=== PATIENT | female | born 1985 | race Caucasian/White ===

== ENCOUNTER → 2019-12-09 16:10 | Outpatient (BNVA) | payer SELFPAY | PROVIDERS: PCP Nurse Practitioner Family; Visit Provider Nurse Practitioner Family | DX: R05 Cough (principal); R52 Pain, unspecified; J02.9 Acute pharyngitis, unspecified | CPT/HCPCS: 87071; 87400; 87635; 87880 ==

== ENCOUNTER → 2020-02-16 13:00 | Outpatient (BNVA) | payer MEDICAID, SELFPAY | PROVIDERS: Visit Provider Social Worker Clinical | DX: F43.12 Post-traumatic stress disorder, chronic (principal) | CPT/HCPCS: 90834 ==

== ENCOUNTER → 2020-04-10 08:40 | Outpatient (BNVA) | payer MEDICAID, SELFPAY | PROVIDERS: Visit Provider Nurse Practitioner Psychiatric/Mental Health | DX: F43.12 Post-traumatic stress disorder, chronic (principal); F41.1 Generalized anxiety disorder; F39 Unspecified mood [affective] disorder; Z87.898 Personal history of other specified conditions | CPT/HCPCS: 99212 ==

== ENCOUNTER → 2020-04-11 08:38 | Outpatient (BNVA) | payer MEDICAID, SELFPAY | PROVIDERS: Visit Provider Social Worker Clinical | DX: F43.12 Post-traumatic stress disorder, chronic (principal) | CPT/HCPCS: 90832 ==

== ENCOUNTER → 2020-04-25 08:04 | Outpatient (BNVA) | payer MEDICAID, SELFPAY | PROVIDERS: Visit Provider Social Worker Clinical | DX: F43.12 Post-traumatic stress disorder, chronic (principal) | CPT/HCPCS: 90834 ==

== ENCOUNTER → 2020-05-09 08:16 | Outpatient (BNVA) | payer MEDICAID, SELFPAY | PROVIDERS: Visit Provider Social Worker Clinical | DX: F43.12 Post-traumatic stress disorder, chronic (principal); F41.1 Generalized anxiety disorder | CPT/HCPCS: 90832 ==

== ENCOUNTER → 2020-05-16 09:24 | Outpatient (BNVA) | payer MEDICAID, SELFPAY | PROVIDERS: Visit Provider Nurse Practitioner Psychiatric/Mental Health | DX: F43.12 Post-traumatic stress disorder, chronic (principal); F41.1 Generalized anxiety disorder; F39 Unspecified mood [affective] disorder; Z87.898 Personal history of other specified conditions | CPT/HCPCS: 99212 ==

== ENCOUNTER → 2020-05-24 08:32 | Outpatient (BNVA) | payer MEDICAID, SELFPAY | PROVIDERS: Visit Provider Social Worker Clinical | DX: F43.12 Post-traumatic stress disorder, chronic (principal) | CPT/HCPCS: 90832 ==

== ENCOUNTER → 2020-07-10 09:07 | Outpatient (BNVA) | payer MEDICAID, SELFPAY | PROVIDERS: Visit Provider Nurse Practitioner Psychiatric/Mental Health | DX: F43.12 Post-traumatic stress disorder, chronic (principal); F41.1 Generalized anxiety disorder; F39 Unspecified mood [affective] disorder; Z87.898 Personal history of other specified conditions | CPT/HCPCS: 99213 ==

== ENCOUNTER → 2020-10-02 08:39 | Outpatient (BNVA) | payer MEDICAID, SELFPAY | PROVIDERS: Visit Provider Nurse Practitioner Psychiatric/Mental Health | DX: F43.12 Post-traumatic stress disorder, chronic (principal); F41.1 Generalized anxiety disorder; F39 Unspecified mood [affective] disorder; Z87.898 Personal history of other specified conditions | CPT/HCPCS: 99214 ==

== ENCOUNTER → 2020-11-07 08:55 | Outpatient (BNVA) | payer MEDICAID, SELFPAY | PROVIDERS: Visit Provider Nurse Practitioner Psychiatric/Mental Health | DX: F43.12 Post-traumatic stress disorder, chronic (principal); F41.1 Generalized anxiety disorder; F39 Unspecified mood [affective] disorder | CPT/HCPCS: 99213 ==

== ENCOUNTER → 2021-01-04 13:04 | Outpatient (BNVA) | payer MEDICAID, SELFPAY | PROVIDERS: Visit Provider Social Worker | DX: F43.12 Post-traumatic stress disorder, chronic (principal) | CPT/HCPCS: 90834 ==

== ENCOUNTER → 2021-01-15 07:55 | Outpatient (BNVA) | payer MEDICAID, SELFPAY | PROVIDERS: Visit Provider Nurse Practitioner Psychiatric/Mental Health | DX: F43.12 Post-traumatic stress disorder, chronic (principal); F41.1 Generalized anxiety disorder; F39 Unspecified mood [affective] disorder; Z79.899 Other long term (current) drug therapy | CPT/HCPCS: 99213 ==

== ENCOUNTER → 2021-01-17 11:25 | Outpatient (BNVA) | payer MEDICAID, SELFPAY | PROVIDERS: PCP Nurse Practitioner Psychiatric/Mental Health; Visit Provider Nurse Practitioner Psychiatric/Mental Health | DX: Z79.899 Other long term (current) drug therapy (principal) | CPT/HCPCS: 80061; 83036 ==

== ENCOUNTER → 2021-01-18 15:04 | Outpatient (BNVA) | payer MEDICAID, SELFPAY | PROVIDERS: Visit Provider Social Worker | DX: F43.12 Post-traumatic stress disorder, chronic (principal) | CPT/HCPCS: 90834 ==

== ENCOUNTER → 2021-02-15 14:56 | Outpatient (BNVA) | payer MEDICAID, SELFPAY | PROVIDERS: Visit Provider Social Worker | DX: F43.12 Post-traumatic stress disorder, chronic (principal) | CPT/HCPCS: 90834 ==

== ENCOUNTER → 2021-03-15 13:47 | Outpatient (BNVA) | payer MEDICAID, SELFPAY | PROVIDERS: Visit Provider Social Worker | DX: F43.12 Post-traumatic stress disorder, chronic (principal) | CPT/HCPCS: 90834 ==

== ENCOUNTER → 2021-03-16 15:56 | Outpatient (BNVA) | payer MEDICAID, SELFPAY | PROVIDERS: Visit Provider Internal Medicine | DX: E07.9 Disorder of thyroid, unspecified (principal) | CPT/HCPCS: 84439; 84443; 86376; 86800 ==

== ENCOUNTER → 2021-03-19 16:26 | Outpatient (BNVA) | payer MEDICAID, SELFPAY | PROVIDERS: Visit Provider Internal Medicine | DX: E07.9 Disorder of thyroid, unspecified (principal) | CPT/HCPCS: 82530; 82570 ==

== ENCOUNTER → 2021-03-28 13:52 | Outpatient (BNVA) | payer MEDICAID, SELFPAY | PROVIDERS: Visit Provider Social Worker | DX: F43.12 Post-traumatic stress disorder, chronic (principal) | CPT/HCPCS: 90834 ==

== ENCOUNTER → 2021-04-10 14:47 | Outpatient (BNVA) | payer MEDICAID, SELFPAY | PROVIDERS: Visit Provider Social Worker | DX: F43.12 Post-traumatic stress disorder, chronic (principal) | CPT/HCPCS: 90834 ==

== ENCOUNTER → 2021-04-12 07:54 | Outpatient (BNVA) | payer MEDICAID, SELFPAY | PROVIDERS: Visit Provider Nurse Practitioner Psychiatric/Mental Health | DX: F43.12 Post-traumatic stress disorder, chronic (principal); F41.1 Generalized anxiety disorder; F39 Unspecified mood [affective] disorder; Z79.899 Other long term (current) drug therapy | CPT/HCPCS: 99214 ==

== ENCOUNTER → 2021-05-01 14:02 | Outpatient (BNVA) | payer MEDICAID, SELFPAY | PROVIDERS: Visit Provider Social Worker | DX: F43.12 Post-traumatic stress disorder, chronic (principal) | CPT/HCPCS: 90834 ==

== ENCOUNTER → 2021-05-09 15:14 | Outpatient (BNVA) | payer MEDICAID, SELFPAY | PROVIDERS: Visit Provider Psychiatry & Neurology Psychiatry | DX: F43.12 Post-traumatic stress disorder, chronic (principal); F41.1 Generalized anxiety disorder; F33.2 Major depressive disorder, recurrent severe without psychotic features | CPT/HCPCS: 99214 ==

== ENCOUNTER → 2021-05-24 07:48 | Outpatient (BNVA) | payer MEDICAID, SELFPAY | PROVIDERS: Visit Provider Social Worker | DX: F43.12 Post-traumatic stress disorder, chronic (principal) | CPT/HCPCS: 90834 ==

== ENCOUNTER → 2021-06-07 07:17 | Outpatient (BNVA) | payer MEDICAID, SELFPAY | PROVIDERS: Visit Provider Social Worker | DX: F43.12 Post-traumatic stress disorder, chronic (principal) | CPT/HCPCS: 90834 ==

== ENCOUNTER → 2021-06-19 14:55 | Outpatient (BNVA) | payer MEDICAID, SELFPAY | PROVIDERS: Visit Provider Social Worker | DX: F43.12 Post-traumatic stress disorder, chronic (principal); F33.2 Major depressive disorder, recurrent severe without psychotic features; F41.1 Generalized anxiety disorder; F31.61 Bipolar disorder, current episode mixed, mild | CPT/HCPCS: 90834 ==

== ENCOUNTER → 2021-07-02 14:50 | Outpatient (BNVA) | payer MEDICAID, SELFPAY | PROVIDERS: Visit Provider Social Worker | DX: F43.12 Post-traumatic stress disorder, chronic (principal); F33.2 Major depressive disorder, recurrent severe without psychotic features; F41.1 Generalized anxiety disorder; F31.61 Bipolar disorder, current episode mixed, mild | CPT/HCPCS: 90834 ==

== ENCOUNTER → 2021-07-11 14:49 | Outpatient (BNVA) | payer MEDICAID, SELFPAY | PROVIDERS: Visit Provider Internal Medicine | DX: R63.5 Abnormal weight gain (principal); R53.83 Other fatigue; E07.9 Disorder of thyroid, unspecified; Z68.42 Body mass index [BMI] 45.0-49.9, adult | CPT/HCPCS: 99214 ==

== ENCOUNTER 2021-07-11 15:39 | Outpatient (CLI) | payer MEDICAID, SELFPAY ==
[2021-07-11 17:23] LABS: Thyroid Stimulating Hormone 1.04 uIU/mL (0.27-4.20)
[2021-07-11 21:17] LABS: Free T4 Free Thyroxine 1.15 ng/dL (0.82-1.77)
[2021-07-13 00:52] LABS: T3 Total 96 ng/dL (76-181)
== END 2021-07-11 15:40 | disposition home or self-care (01) ==
LOC: LAB 15:43
PROVIDERS: Visit Provider Internal Medicine
DX: R53.83 Other fatigue (principal); R63.5 Abnormal weight gain
CPT/HCPCS: 36415; 84439; 84443; 84480

== ENCOUNTER → 2021-07-24 14:33 | Outpatient (BNVA) | payer MEDICAID, SELFPAY | PROVIDERS: Visit Provider Psychiatry & Neurology Psychiatry | DX: F33.2 Major depressive disorder, recurrent severe without psychotic features (principal); F43.12 Post-traumatic stress disorder, chronic; F41.1 Generalized anxiety disorder | CPT/HCPCS: 99214 ==

== ENCOUNTER → 2021-08-09 15:58 | Outpatient (BNVA) | payer MEDICAID, SELFPAY | PROVIDERS: Visit Provider Social Worker | DX: F43.12 Post-traumatic stress disorder, chronic (principal); F33.2 Major depressive disorder, recurrent severe without psychotic features; F41.1 Generalized anxiety disorder; F31.61 Bipolar disorder, current episode mixed, mild | CPT/HCPCS: 90834 ==

== ENCOUNTER → 2021-09-10 14:00 | Outpatient (BNVA) | payer MEDICAID, SELFPAY | PROVIDERS: Visit Provider Social Worker | DX: F43.12 Post-traumatic stress disorder, chronic (principal); F33.2 Major depressive disorder, recurrent severe without psychotic features; F41.1 Generalized anxiety disorder; F31.61 Bipolar disorder, current episode mixed, mild | CPT/HCPCS: 90834 ==

== ENCOUNTER → 2021-09-13 13:34 | Outpatient (BNVA) | payer MEDICAID, SELFPAY | PROVIDERS: Visit Provider Surgery | DX: F33.2 Major depressive disorder, recurrent severe without psychotic features (principal) ==

== ENCOUNTER → 2021-09-18 07:33 | Outpatient (BNVA) | payer MEDICAID, SELFPAY | PROVIDERS: Visit Provider Psychiatry & Neurology Psychiatry | DX: F33.2 Major depressive disorder, recurrent severe without psychotic features (principal); F43.12 Post-traumatic stress disorder, chronic; F41.1 Generalized anxiety disorder | CPT/HCPCS: 99214 ==

== ENCOUNTER → 2021-10-08 07:21 | Outpatient (BNVA) | payer MEDICAID, SELFPAY | PROVIDERS: Visit Provider Social Worker | DX: F43.12 Post-traumatic stress disorder, chronic (principal); F31.61 Bipolar disorder, current episode mixed, mild; F33.2 Major depressive disorder, recurrent severe without psychotic features; F41.1 Generalized anxiety disorder | CPT/HCPCS: 90834 ==

== ENCOUNTER → 2021-11-06 14:51 | Outpatient (BNVA) | payer MEDICAID, SELFPAY | PROVIDERS: Visit Provider Nurse Practitioner Family | DX: E11.9 Type 2 diabetes mellitus without complications (principal) | CPT/HCPCS: 83036 ==

== ENCOUNTER → 2021-11-14 13:59 | Outpatient (BNVA) | payer MEDICAID, SELFPAY | PROVIDERS: Visit Provider Surgery | DX: F43.12 Post-traumatic stress disorder, chronic (principal); F33.2 Major depressive disorder, recurrent severe without psychotic features; F41.1 Generalized anxiety disorder; F31.61 Bipolar disorder, current episode mixed, mild; R22.2 Localized swelling, mass and lump, trunk | CPT/HCPCS: 90837; 90834; 99213 ==

== ENCOUNTER → 2021-11-20 14:47 | Outpatient (BNVA) | payer MEDICAID, SELFPAY | PROVIDERS: Visit Provider Psychiatry & Neurology Psychiatry | DX: F33.2 Major depressive disorder, recurrent severe without psychotic features (principal); F43.12 Post-traumatic stress disorder, chronic; F41.1 Generalized anxiety disorder | CPT/HCPCS: 99214 ==

== ENCOUNTER → 2021-11-27 13:09 | Outpatient (BNVA) | payer MEDICAID, SELFPAY | PROVIDERS: Visit Provider Social Worker | DX: F43.12 Post-traumatic stress disorder, chronic (principal); F33.2 Major depressive disorder, recurrent severe without psychotic features; F41.1 Generalized anxiety disorder; F31.61 Bipolar disorder, current episode mixed, mild | CPT/HCPCS: 90834 ==

== ENCOUNTER → 2021-12-11 09:46 | Outpatient (BNVA) | payer MEDICAID, SELFPAY | PROVIDERS: Visit Provider Nurse Practitioner Family | DX: E11.9 Type 2 diabetes mellitus without complications (principal) | CPT/HCPCS: 80053; 80061; 84443; 85025 ==

== ENCOUNTER → 2021-12-12 10:14 | Outpatient (BNVA) | payer MEDICAID, SELFPAY | PROVIDERS: Visit Provider Anesthesiology Pain Medicine | DX: G89.29 Other chronic pain (principal); M25.562 Pain in left knee; Z91.81 History of falling | CPT/HCPCS: 73562; 99203 ==

== ENCOUNTER 2021-12-31 13:00 | Outpatient (CLI) | payer MEDICAID, SELFPAY | END 2022-01-03 12:05 | disposition home or self-care (01) | LOC: SLEEP 01-10 08:19 | PROVIDERS: Visit Provider Internal Medicine | DX: R53.83 Other fatigue (principal); R63.5 Abnormal weight gain; G47.33 Obstructive sleep apnea (adult) (pediatric) | CPT/HCPCS: G0399 ==

== ENCOUNTER → 2022-01-09 14:11 | Outpatient (BNVA) | payer MEDICAID, SELFPAY | PROVIDERS: PCP Nurse Practitioner Family; Visit Provider Internal Medicine | DX: E11.9 Type 2 diabetes mellitus without complications (principal); R63.5 Abnormal weight gain; R53.83 Other fatigue; E07.9 Disorder of thyroid, unspecified; L65.9 Nonscarring hair loss, unspecified; G47.33 Obstructive sleep apnea (adult) (pediatric); Z68.41 Body mass index [BMI] 40.0-44.9, adult; Z79.84 Long term (current) use of oral hypoglycemic drugs | CPT/HCPCS: 99214 ==

== ENCOUNTER → 2022-01-14 09:47 | Outpatient (BNVA) | payer MEDICAID, SELFPAY | PROVIDERS: PCP Nurse Practitioner Family; Visit Provider Anesthesiology Pain Medicine | DX: M25.562 Pain in left knee (principal); G89.29 Other chronic pain | CPT/HCPCS: 99214 ==

== ENCOUNTER → 2022-01-31 10:52 | Outpatient (BNVA) | payer MEDICAID, SELFPAY | PROVIDERS: PCP Nurse Practitioner Family; Referring Provider Internal Medicine; Visit Provider Internal Medicine Pulmonary Disease | DX: G47.33 Obstructive sleep apnea (adult) (pediatric) (principal); J45.909 Unspecified asthma, uncomplicated; Z68.41 Body mass index [BMI] 40.0-44.9, adult; T78.40XA Allergy, unspecified, initial encounter; E11.9 Type 2 diabetes mellitus without complications; Z79.84 Long term (current) use of oral hypoglycemic drugs | CPT/HCPCS: 82785; 85025; 86003; 99204 ==

== ENCOUNTER 2022-02-15 13:36 | Outpatient (CLI) | payer MEDICAID, SELFPAY ==
--- NOTE | 2022-02-15 13:45 | MR_ITS ---
WS: [id number] MRI LEFT KNEE NONCONTRAST TECHNIQUE: Axial PD, coronal PD fat sat, coronal PD, sagittal PD, and sagittal PD fat-sat images obta ined. CLINICAL INFORMATION: M25.562 - Pain in left knee COMPARISON: None. FINDINGS: Distal quadriceps and patella tendons are intact. Hypertrophic patella. Mucoid degeneration ACL. Evid ence of prior suspected ACL tear with increased T2 signal abnormality in the mid and distal ACL exten ding to the tibial insertion. Associated T2 hyperintense intra-articular ganglion cyst along the prox imal dorsal ACL fibers measuring 7.6 x 7.0 mm. PCL is intact. Moderate chondromalacia patella. Slight lateral subluxation of the patella. Lateral patellar retinacu lum is not visualized likely chronically torn. Normal medial patellar retinaculum. Normal medial neal ateral ligament. Normal lateral collateral ligament. Intrasubstance tear involving the popliteus orig in with fluid deep to the ligament. Mild chronic thinning of the medial and lateral meniscus. No acut e appearing meniscal tears. IMPRESSION: 1. Intrasubstance tear involving the mid and distal ACL extending to the tibial insertion with mucoi d degeneration. 2. 7.6 x 7.0 mm intra-articular ganglion cyst along the dorsal proximal ACL fibers. 3. Moderate chondromalacia patella. Lateral subluxation of the patella with hypertrophic spurring la terally. Lateral patellar retinaculum is not visualized likely chronically torn. Normal medial patell ar retinaculum. 4. Fluid deep to the popliteus with a small intrasubstance tear of the popliteus origin. Recommend c orrelation with history of posterior lateral corner injury. 5. Medial and lateral collateral ligaments appear intact. 6. No other acute findings. Outbridge grading:
== END 2022-02-15 13:37 | disposition home or self-care (01) ==
PROVIDERS: PCP Nurse Practitioner Family; Visit Provider Anesthesiology Pain Medicine
DX: S83.512A Sprain of anterior cruciate ligament of left knee, initial encounter (principal); M22.42 Chondromalacia patellae, left knee; X58.XXXA Exposure to other specified factors, initial encounter
CPT/HCPCS: 73721; 87493

== ENCOUNTER → 2022-02-25 15:06 | Outpatient (BNVA) | payer MEDICAID, SELFPAY | PROVIDERS: PCP Nurse Practitioner Family; Referring Provider Anesthesiology Pain Medicine; Visit Provider Specialist | DX: G89.29 Other chronic pain; S83.512A Sprain of anterior cruciate ligament of left knee, initial encounter; E66.01 Morbid (severe) obesity due to excess calories; Z68.41 Body mass index [BMI] 40.0-44.9, adult; V00.211A Fall from ice-skates, initial encounter | CPT/HCPCS: 73560; 73565; 99204 ==

== ENCOUNTER 2022-04-30 09:29 | Outpatient (CLI) | payer MEDICAID, SELFPAY ==
--- NOTE | 2022-04-30 09:45 | IR_ITS ---
WS: [id number] LEFT KNEE ARTHROGRAM (FLUOROSCOPY) LEFT knee arthrogram was performed in fluoroscopy prior to MRI evaluation. Fluoroscopy time: 0.4 minutes, 2 spot radiographs. HISTORY: pain COMPARISON: Prior knee MRI 04/30/2022. Procedure, risks and complications were explained to the patient. Complications include but not limit ed to bleeding, infection and contrast reaction. Current medications are reviewed. Skin is cleansed with ChloraPrep. Skin is anesthetized with 1% buffered lidocaine. 22-gauge needle is inserted into the medial patellofemoral joint space. Approximately 35 cc of gadolinium mixture injec lore without complication. Patient will proceed to MRI evaluation immediately. No complications were encountered. Patient is instructed to watch for post procedure infection or ble eding. Patient is also instructed to contact the radiology department with any concerns. IR/[place] [id number] IMPRESSION: Uncomplicated LEFT knee joint joint injection prior to MR arthrogram. Small amount contrast extends along the lateral knee compartment. This is exter nal to the joint.
[2022-04-30] MEDS: gadobenate dimeglumine 5 mL vial XX (10:32)
[2022-04-30] MEDS: iohexol 240 mg/mL 50 mL Btl INTRA-ARTI (10:33)
--- NOTE | 2022-04-30 11:45 | MR_ITS ---
WS: [id number] MRI LEFT KNEE post arthrogram. COMPARISON: Prior MRI knee 02/15/2022 Multiplanar, multisequence imaging is performed with articular contrast. History: Continued lateral knee pain. Normal medial and lateral cartilage. There is good injection of contrast. ACL and PCL appear intact. There is mild lateral subluxation of the patella. The lateral patellar retinaculum is very thin calib er. There is contrast extending from the posterior lateral knee joint inferiorly along the lateral tibial plateau towards the popliteus muscle. Although subtle there does appear to be a defect and probable tear involving the inferior popliteal meniscal fascicle. Contrast extends from the joint space throug h the meniscal fascicle tear. This contrast extends into the popliteus muscle and tendon. This could be the source of pain over the lateral knee. There is a loose body measuring 7 mm along the anterior knee joint. This is just anterior to the dist al ACL and was also present on the prior MRI. No donor site is evident. MR/MR knee LT w con [id number] IMPRESSION: 1. Highly suspicious for tear involving the inferior popliteal meniscal fascic le. 2. 7 mm loose body along the anterior knee joint. No donor site is evident.
== END 2022-04-30 09:30 | disposition home or self-care (01) ==
LOC: RAD 09:30
PROVIDERS: PCP Nurse Practitioner Family; Visit Provider Specialist
DX: M25.562 Pain in left knee (principal); M17.12 Unilateral primary osteoarthritis, left knee
CPT/HCPCS: 27369; 73722; 77002; 83036; 85025; A9577; Q9966

== ENCOUNTER → 2022-05-13 13:05 | Outpatient (BNVA) | payer MEDICAID, SELFPAY | PROVIDERS: PCP Nurse Practitioner Family; Visit Provider Nurse Practitioner Family | DX: E11.9 Type 2 diabetes mellitus without complications (principal); R53.83 Other fatigue; R63.5 Abnormal weight gain | CPT/HCPCS: 80061; 83036; 84439; 84443 ==

== ENCOUNTER → 2022-05-21 14:28 | Outpatient (BNVA) | payer MEDICAID, SELFPAY | PROVIDERS: PCP Nurse Practitioner Family; Visit Provider Internal Medicine | DX: E11.9 Type 2 diabetes mellitus without complications (principal); E78.2 Mixed hyperlipidemia; E07.9 Disorder of thyroid, unspecified; R53.83 Other fatigue; R63.5 Abnormal weight gain; Z68.41 Body mass index [BMI] 40.0-44.9, adult | CPT/HCPCS: 99214 ==

== ENCOUNTER → 2022-06-20 09:20 | Outpatient (BNVA) | payer MEDICAID, SELFPAY | PROVIDERS: PCP Nurse Practitioner Family; Visit Provider Anesthesiology Pain Medicine | DX: G89.29 Other chronic pain (principal); M25.562 Pain in left knee; M54.16 Radiculopathy, lumbar region | CPT/HCPCS: 99214 ==

== ENCOUNTER 2022-06-28 12:49 | Emergency (ER) | payer MEDICAID, SELFPAY ==
[2022-06-28 12:53] VITALS: BP 132/85; PULSE 72; RESP 16; TEMP 36.4; O2SAT 97
[2022-06-28 14:47] LABS: Basophils # 0.1 10^3/uL (0.0-0.1); Basophils % 0.7 %; Eosinophils # 0.1 10^3/uL (0.0-0.8); Eosinophils % 0.7 %; Hematocrit 51.3 % (37.0-47.0); Hemoglobin 16.5 g/dL (11.5-15.3); Lymphocytes # 2.8 10^3/uL (0.8-4.8); Lymphocytes % 28.6 %; Mean Corpuscular HGB Conc 32.2 g/dL (30.0-36.0); Mean Corpuscular Hemoglobin 28.8 pg (28.0-34.0); Mean Corpuscular Volume 89.5 fl (81-99); Mean Platelet Volume 9.5 fL (7.4-10.4); Monocytes # 0.8 10^3/uL (0.2-0.9); Monocytes % 8.4 %; Neutrophils # 5.94 10^3/uL (1.8-7.7); Neutrophils % 61.4 %; Nucleated Red Blood Cells % 0 %; Platelet Count 315 10^3/cmm (130-400); Red Blood Count 5.73 10^6/uL (4.1-5.3); Red Cell Distribution Width 13.2 % (12.1-15.1); White Blood Count 9.7 10^3/uL (4.0-10.0)
[2022-06-28 15:03] LABS: HCG, Serum Qual Negative (Negative)
[2022-06-28 15:04] LABS: Alanine Aminotransferase 35 U/L (0-33); Albumin Level 4.6 g/dL (3.5-5.2); Alkaline Phosphatase 77 U/L (35-105); Anion Gap 16.1 (5-19); Aspartate Amino Transferase 19 U/L (0-32); Blood Urea Nitrogen 18 mg/dL (6-20); Calcium 9.7 mg/dL (8.5-10.5); Carbon Dioxide 23 mmol/L (22-29); Chloride 103 mmol/L (98-107); Globulin 2.8 g/dL (1.3-4.6); Glomerular Filtration Rate 62.1 mL/min (90-130); Glucose 120 mg/dL (65-115); Osmolality Calculated 289 mOsm/kg (285-295); Potassium 4.1 mmol/L (3.5-5.1); Sodium 138 mmol/L (136-145); Total Bilirubin 0.3 mg/dL (0.15-1.2); Total Protein 7.4 g/dL (6.6-8.7)
--- NOTE | 2022-06-28 16:59 | CTR_ITS ---
PROCEDURE INFORMATION: Exam: CT Abdomen And Pelvis Without Contrast Exam date and time: 06/28/2022 5:10 PM Age: 36 years old Clinical indication: Abdominal pain; Flank; Left; Prior surgery; Surgery date: 6+ months; Surgery type: Hyster, gb; Additional info: Left renal colic TECHNIQUE: Imaging protocol: Computed tomography of the abdomen and pelvis without contrast. Radiation optimization: All CT scans at this facility use at least one of these dose optimization techniques: automated exposure control; mA and/or kV adjustment per patient size (includes targeted exams where dose is matched to clinical indication); or iterative reconstruction. Other protocol: This patient has received [address] and 0 known cardiac nuclear medicine studies in the 12 months prior to the current study. COMPARISON: No relevant prior studies available. RADIATION DOSE METRICS: Total DLP (mGy-cm): 1181.23 FINDINGS: Lungs: Minimal discoid atelectasis right lower lobe. Liver: Diffuse fatty infiltration of the liver. The liver is enlarged measuring 19.5 cm. Gallbladder and bile ducts: Status post cholecystectomy. Pancreas: Normal. No ductal dilation. Spleen: Normal. No splenomegaly. Adrenal glands: Normal. No mass. Kidneys and ureters: 3 mm nonobstructing stone is present in the lower pole of the left kidney. No hydronephrosis. Stomach and bowel: Unremarkable. No obstruction. No mucosal thickening. Appendix: No evidence of appendicitis. Intraperitoneal space: Unremarkable. No free air. No significant fluid collection. Vasculature: Unremarkable. No abdominal aortic aneurysm. Lymph nodes: Unremarkable. No enlarged lymph nodes. Urinary bladder: The bladder is decompressed. Reproductive: Hysterectomy. Bones/joints: Unremarkable. No acute fracture. Soft tissues: Unremarkable. CT/CT kidney stone [id number] IMPRESSION: 1. 3 mm nonobstructing left-sided nephrolith. No obstructing stone identified. 2. Hepatomegaly with fatty infiltration of the liver. 3. Status post cholecystectomy.
--- NOTE | 2022-06-28 17:02 | ED_ITS ---
HPI - Abdominal Pain General: Chief Complaint: Abdominal Pain Stated Complaint: kidney stone Time Seen by Provider: 06/28/22 16:42 History of Present Illness: 36-year-old female in with concerns of diffuse abdominal pain left greater than right. She previously had an evaluation at [facility] and was told that she had some kidney stones and has been referred to urology but she has not seen them yet. She reports today the pain got significantly worse she describes it as a colicky type of pain on her left side but to a lesser degree on her right side. She does have some radiation to the flank bilaterally. The patient notes no palliative or provocative factors she went to her primary care nurse practitioner who ran a urinalysis that was fairly normal and then because of her complaints of moderate pain she was referred to the emergency department for further evaluation she denies any dysuria or hematuria. She has not run any fever nor has she had any chills. She denies any skin rash or lesions. Patient has not had any vaginal bleeding and denies . Patient has not started on any new or different medication she has a variety of different medication allergies listed. Associated Symptoms: Reports bloating and nausea; Denies change in bowel habits, coffee ground emesis, constipation, excessive flatus, hematochezia, hematemesis, melena and vomiting Review of Systems General: Reports: 10 or more systems reviewed and unremarkable except in HPI and below GI: Reports: abdominal pain, nausea and bloating; Denies: vomiting, hematemesis, coffee ground emesis, dysphagia, constipation, excessive flatus, change in bowel habits, hematochezia or melena Skin/Breast: Denies: rash, pruritus or erythema PFS ED PFSH: Medical History Chronic ear infection Chronic pain of left knee Diabetes 1.5, managed as type 2 Insomnia Insomnia Knee arthropathy Problems related to lack of adequate sleep Psychiatric care Tachycardia Surgical History History of arthroscopic knee surgery Left 2x History of cholecystectomy Hx of hysterectomy Family History Father Cancer Depression Mother Diabetes Cancer Depression Anxiety Social History (Reviewed 06/28/22 @ 19:46 by PING Crockett Smoking and tobacco status: never smoked Second hand smoke exposure: No Smoking risk assessment/counseling performed?: Yes Alcohol intake: former Desire information about alcohol rehabilitation?: No Desire information about substance/drug rehabilitation?: No Adopted: No Caregiver/support person: No Lives independently: Yes Household members: none Housing: House Marital status: Single Number of children: 0 Highest education level completed: Master's Degree service: No Current occupational status: disabled History of recent travel: Yes Details: [place] Out of state: Yes Current gender identity: Female Physical Exam Const: OTHER: General sign of an obese female in no apparent distress. She does not appear toxic or significantly ill. Chest: OTHER: Chest nontender Resp: OTHER: Respiratory rate is normal and lungs are clear to auscultation Cardio: OTHER: Regular rate and rhythm GI: OTHER: Soft and normal active bowel sounds she is mildly tender in the pelvis and to the left flank. No rebound or guarding. Neuro: OTHER: Nonfocal Psych: OTHER: Anxious Course Vital Signs: Vital signs: Vital Signs Temperature 97.6 F 06/28/22 12:53 Pulse Rate 71 06/28/22 19:40 Respiratory Rate 16 06/28/22 19:40 Blood Pressure 123/77 06/28/22 19:40 Pulse Oximetry 96 06/28/22 19:40 Oxygen Delivery Me thod 06/28/22 19:40 MDM - Abdominal Pain Medical Decision Making I discussed the differential diagnosis she reports recent history of kidney stone it may be reasonable to go ahead and repeat her CT scan to rule out colitis and kidney stone another more serious intra-abdominal catastrophes or serious diagnoses. The patient looks relatively comfortable Bessie give her some Toradol we will check some routine labs and urinalysis and then I will recheck her. The patient reports feeling significantly better after Toradol. The work-up here was nondiagnostic there were not any stones in the ureter. Patient will be discharged home she does have elevated hemoglobin and hematocrit that I talked with her about. I think that is unlikely to play any role in her symptoms. I have recommended that she follow-up with primary care and we reviewed return precautions. Will treat symptomatically. Differential Diagnosis Likely abdominal pain, acute appendicitis, calculus of kidney, constipation, diverticulitis, gastroenteritis, pancreatitis and small bowel obstruction Lab Data 06/28/22 14:35 06/28/22 14:35 Labs/Radiology: Radiology Impressions Abdomen/Pelvis CT 06/28/22 16:59 IMPRESSION: 1. 3 mm nonobstructing left-sided nephrolith. No obstructing stone identified. 2. Hepatomegaly with fatty infiltration of the liver. 3. Status post cholecystectomy. Laboratory Results WBC 9.7 10^3/uL (4.0-10.0) 06/28/22 14:35 RBC 5.73 10^6/uL (4.1-5.3) H 06/28/22 14:35 Hgb 16.5 g/dL (11.5-15.3) H 06/28/22 14:35 Hct 51.3 % (37.0-47.0) H 06/28/22 14:35 MCV 89.5 fl (81-99) 06/28/22 14:35 MCH 28.8 pg (28.0-34.0) 06/28/22 14:35 MCHC 32.2 g/dL (30.0-36.0) 06/28/22 14:35 RDW 13.2 % (12.1-15.1) 06/28/22 14:35 Plt Count 315 10^3/cmm (130-400) 06/28/22 14:35 MPV 9.5 fL (7.4-10.4) 06/28/22 14:35 Neut % (Auto) 61.4 % 06/28/22 14:35 Lymph % (Auto) 28.6 % 06/28/22 14:35 [place] % (Auto) 8.4 % 06/28/22 14:35 Eos % (Auto) 0.7 % 06/28/22 14:35 Baso % (Auto) 0.7 % 06/28/22 14:35 Neut # (Auto) 5.94 10^3/uL (1.8-7.7) 06/28/22 14:35 Lymph # (Auto) 2.8 10^3/uL (0.8-4.8) 06/28/22 14:35 [place] # (Auto) 0.8 10^3/uL (0.2-0.9) 06/28/22 14:35 Eos # (Auto) 0.1 10^3/uL (0.0-0.8) 06/28/22 14:35 Baso # (Auto) 0.1 10^3/uL (0.0-0.1) 06/28/22 14:35 Nucleated RBC % (auto) 0 % 06/28/22 14:35 Nucleated RBCs # 0.0 /100WBC 06/28/22 14:35 Sodium 138 mmol/L (136-145) 06/28/22 14:35 Potassium 4.1 mmol/L (3.5-5.1) 06/28/22 14:35 Chloride 103 mmol/L (98-107) 06/28/22 14:35 Carbon Dioxide 23 mmol/L (22-29) 06/28/22 14:35 Anion Gap 16.1 (5-19) 06/28/22 14:35 BUN 18 mg/dL (6-20) 06/28/22 14:35 Creatinine 1.0 mg/dL (0.5-0.9) H 06/28/22 14:35 GFR Calculation 62.1 mL/min (90-130) L 06/28/22 14:35 Glucose 120 mg/dL (65-115) H 06/28/22 14:35 Calculated Osmolality 289 mOsm/kg (285-295) 06/28/22 14:35 Calcium 9.7 mg/dL (8.5-10.5) 06/28/22 14:35 Total Bilirubin 0.3 mg/dL (0.15-1.2) 06/28/22 14:35 AST 19 U/L (0-32) 06/28/22 14:35 ALT 35 U/L (0-33) H 06/28/22 14:35 Alkaline Phosphatase 77 U/L (35-105) 06/28/22 14:35 Total Protein 7.4 g/dL (6.6-8.7) 06/28/22 14:35 Albumin 4.6 g/dL (3.5-5.2) 06/28/22 14:35 Globulin 2.8 g/dL (1.3-4.6) 06/28/22 14:35 HCG, Qual Negative (Negative) 06/28/22 14:35 Urine Color Yellow (Yellow) 06/28/22 17:07 Urine Appearance Clear (CLEAR) 06/28/22 17:07 Urine pH 5 (5-7) 06/28/22 17:07 Ur Specific [place] 1.025 (1.005-1.030) 06/28/22 17:07 Urine Protein Neg (Negative) 06/28/22 17:07 Urine Glucose (UA) 4+ (Normal) H 06/28/22 17:07 Urine Ketones Negative (Negative) 06/28/22 17:07 Urine Blood Neg (Negative) 06/28/22 17:07 Urine Nitrate Negative (Negative) 06/28/22 17:07 Urine Bilirubin Neg (Negative) 06/28/22 17:07 Urine Urobilinogen Neg mg/dL (Negative) 06/28/22 17:07 Ur Leukocyte Esterase Negative (Negative) 06/28/22 17:07 Discharge Plan Discharge Patient Disposition: Home Clinical Impression: Type 2 diabetes mellitus, Kidney stone on left side, Abdominal pain Condition: Stable Prescriptions: New Naprosyn 500 mg tablet 500 mg PO BID Qty: 20 0RF No Action omeprazole 20 mg capsule,delayed release(DR/EC) 20 mg PO DAILY multivitamin Tablet 1 tab PO DAILY Ozempic 0.25 mg or 0.5 mg(2 mg/1.5 mL) pen injector See Rx Instructions SUBCUT .COMPLEX Qty: 6 3RF Rx Instructions: Inject 0.25 mg subcut once a week for 4 weeks, then increase to 0.5 mg once a week and continue. subcutaneously; Zyrtec 10 mg capsule 10 mg PO DAILY propranolol 10 mg tablet 10 mg PO BID [place] 5 mg tablet 5 mg PO BID Rx Instructions: must administer with a meal/food diltiazem HCl 360 mg capsule,extended release 24 hr 360 mg PO DAILY rosuvastatin 10 mg tablet 10 mg PO DAILY Qty: 90 0RF albuterol sulfate 90 mcg/actuation HFA aerosol inhaler 2 puff inhalation Q6H PRN (Reason: shortness of breath or wheezing) Qty: 8.5 5RF famotidine [Acid Vp Integration (famotidine)] 10 mg tablet 10 mg PO DAILY cholecalciferol (vitamin D3) 125 mcg (5,000 unit) capsule 125 mcg PO DAILY Belsomra 10 mg tablet 10 mg PO .qhs 30 Days Qty: 30 3RF tamsulosin [Flomax] 0.4 mg capsule 0.4 mg PO DAILY Invokana 300 mg tablet 300 mg PO DAILY Qty: 90 0RF fluoxetine 40 mg capsule 80 mg PO DAILY 30 Days Qty: 60 3RF diclofenac sodium 50 mg tablet,delayed release (DR/EC) 50 mg PO BID Qty: 180 0RF lurasidone 80 mg tablet 80 mg PO .q evening 30 Days Qty: 30 4RF Rx Instructions: Take 1 tablet by mouth each evening_must administer with food (at least 350 calories) prazosin 5 mg capsule 5 mg PO .HS 30 Days Qty: 30 4RF cyclobenzaprine 10 mg tablet 10 mg PO TID PRN (Reason: muscle spasm) Qty: 60 3RF buspirone 30 mg tablet 30 mg PO BID 30 Days Qty: 60 3RF Discharge Orders: Discharge ED (Routine); Ordered 06/28/22 Ordered By: Zack Koch Referrals: Krystle Fish, PROP [facility]ER [Primary Care Provider] - Discharge Diet: Advance as tolerated Discharge Activity: Resume usual activity Patient Instructions: Abdominal Pain (ED), Opioid Safety, Pain Management Activity Restrictions/Additional Instructions: 1. Call PCP for follow up next week. 2. Return to ED for new or worsening symptoms. Coding Level of Care Code ED Pin Game Machine Inspector for Ramona Quintana
[2022-06-28 17:24] LABS: Add Urine Microscopic? NO; Charge for UA Resulting for Rev
[2022-06-28] MEDS: ketorolac 30 mg/mL INJ 15 MG IVP (17:27)
[2022-06-28 17:29] VITALS: BP 138/88; PULSE 65; RESP 16; O2SAT 97
[2022-06-28 17:36] LABS: Bilirubin Urine Neg (Negative); Blood Urine Neg (Negative); Glucose Urine UA 4+ (Normal); Ketones Urine Negative (Negative); Leukocyte Esterase Urine Negative (Negative); Nitrate Urine Negative (Negative); Protein Urine Neg (Negative); Specific Gravity, Urine 1.025 (1.005-1.030); Urine Appearance Clear (CLEAR); Urine Color Yellow (Yellow); Urobilinogen Urine Neg (Negative); pH Urine 5 (5-7)
[2022-06-28 19:40] VITALS: BP 123/77; PULSE 71; RESP 16; O2SAT 96
[2022-06-28 20:17] VITALS: BP 124/78; PULSE 69; RESP 16; O2SAT 97
== END 2022-06-28 20:18 | disposition home or self-care (01) ==
PROVIDERS: Physician Assistant; Emergency Provider Family Medicine; PCP Nurse Practitioner Family
DX: N20.0 Calculus of kidney (principal); E11.9 Type 2 diabetes mellitus without complications
CPT/HCPCS: 36415; 74176; 80053; 81000; 81003; 82962; 84703; 85025; 87086; 96374; 99285; J1885

== ENCOUNTER → 2022-07-22 09:59 | Outpatient (BNVA) | payer MEDICAID, SELFPAY | PROVIDERS: PCP Nurse Practitioner Family; Visit Provider Anesthesiology Pain Medicine | DX: G89.29 Other chronic pain (principal); M25.562 Pain in left knee | CPT/HCPCS: 99214 ==

== ENCOUNTER 2022-07-24 20:00 | Outpatient (CLI) | payer MEDICAID, SELFPAY | END 2022-07-24 20:01 | disposition home or self-care (01) | LOC: SLEEP 07-25 03:02 | PROVIDERS: PCP Nurse Practitioner Family; Visit Provider Internal Medicine Pulmonary Disease | DX: G47.33 Obstructive sleep apnea (adult) (pediatric) (principal) | CPT/HCPCS: 95811 ==

== ENCOUNTER → 2022-08-09 10:50 | Outpatient (BNVA) | payer MEDICAID, SELFPAY | PROVIDERS: PCP Nurse Practitioner Family; Visit Provider Internal Medicine | DX: E11.9 Type 2 diabetes mellitus without complications (principal); E78.2 Mixed hyperlipidemia | CPT/HCPCS: 80053; 80061; 83036 ==

== ENCOUNTER → 2022-10-09 15:04 | Outpatient (BNVA) | payer MEDICAID, SELFPAY | PROVIDERS: PCP Nurse Practitioner Family; Visit Provider Internal Medicine | DX: E11.9 Type 2 diabetes mellitus without complications (principal); E78.2 Mixed hyperlipidemia; E07.9 Disorder of thyroid, unspecified; R53.83 Other fatigue; R63.5 Abnormal weight gain; Z68.41 Body mass index [BMI] 40.0-44.9, adult | CPT/HCPCS: 99214 ==

== ENCOUNTER → 2022-10-29 15:46 | Outpatient (BNVA) | payer MEDICAID, SELFPAY | PROVIDERS: PCP Nurse Practitioner Family; Visit Provider Nurse Practitioner Family | DX: M79.671 Pain in right foot (principal); M25.571 Pain in right ankle and joints of right foot | CPT/HCPCS: 73610; 73630 ==

== ENCOUNTER → 2022-12-31 16:16 | Outpatient (BNVA) | payer MEDICAID, SELFPAY | PROVIDERS: PCP Nurse Practitioner Family; Visit Provider Internal Medicine | DX: E11.9 Type 2 diabetes mellitus without complications (principal); E78.2 Mixed hyperlipidemia | CPT/HCPCS: 80053; 80061; 82043; 83036 ==

== ENCOUNTER → 2023-01-07 15:04 | Outpatient (BNVA) | payer MEDICAID, SELFPAY | PROVIDERS: PCP Nurse Practitioner Family; Visit Provider Internal Medicine | DX: E07.9 Disorder of thyroid, unspecified (principal); R53.83 Other fatigue; R63.5 Abnormal weight gain; E11.9 Type 2 diabetes mellitus without complications; E78.2 Mixed hyperlipidemia | CPT/HCPCS: 99214 ==

== ENCOUNTER 2023-04-15 20:00 | Outpatient (CLI) | payer MEDICAID, SELFPAY | END 2023-04-15 20:01 | disposition home or self-care (01) | PROVIDERS: PCP Nurse Practitioner Family; Visit Provider Internal Medicine Pulmonary Disease | DX: G47.00 Insomnia, unspecified (principal); G47.33 Obstructive sleep apnea (adult) (pediatric) | CPT/HCPCS: 95810 ==

== ENCOUNTER 2023-05-03 10:31 | Emergency (ER) | payer MEDICAID, SELFPAY ==
[2023-05-03] VITALS (7 sets, daily range): BP systolic 105–117; BP diastolic 58–74; PULSE 56–66; RESP 16–18; TEMP 36.7; O2SAT 97–100; BMI 40.3
[2023-05-03 13:07] LABS: HCG Qualitative Urine. Negative (Negative)
--- NOTE | 2023-05-03 17:19 | CTR_ITS ---
PROCEDURE INFORMATION: Exam: CT Abdomen And Pelvis With Contrast Exam date and time: 05/03/2023 5:44 PM Age: 37 years old Clinical indication: Abdominal pain; Localized; Right lower quadrant (rlq); Prior surgery; Surgery date: 6+ months; Surgery type: Hysto gb; Additional info: Rlq pain-appy TECHNIQUE: Imaging protocol: Computed tomography of the abdomen and pelvis with contrast. Radiation optimization: All CT scans at this facility use at least one of these dose optimization techniques: automated exposure control; mA and/or kV adjustment per patient size (includes targeted exams where dose is matched to clinical indication); or iterative reconstruction. Contrast material: OMNI 350; Contrast volume: 100 ml; Contrast route: INTRAVENOUS (IV); REPORTING DATA: Count of CT and Cardiac NM exams in prior 12 months: This patient has received [address] and 0 known cardiac nuclear medicine studies in the 12 months prior to the current study. COMPARISON: CT kidney stone [id number] 06/28/2022 5:10 PM RADIATION DOSE METRICS: Total DLP (mGy-cm): 1200.03 FINDINGS: Liver: No acute findings. Gallbladder and bile ducts: Cholecystectomy. Pancreas: No ductal dilation. Spleen: No splenomegaly. Adrenal glands: No mass. Kidneys and ureters: No hydronephrosis. Stomach and bowel: No obstruction. Appendix: No evidence of appendicitis. Intraperitoneal space: No free air. No significant fluid collection. Vasculature: No abdominal aortic aneurysm. Lymph nodes: No enlarged lymph nodes. Urinary bladder: Incompletely distended. Reproductive: Hysterectomy. Bones/joints: No acute findings. Soft tissues: Unremarkable. CT/CT abdomen pelvis w con* [id number] IMPRESSION: No acute findings.
--- NOTE | 2023-05-03 17:20 | ED_ITS ---
HPI - Abdominal Pain 2 General: Chief Complaint: Abdominal Pain Stated Complaint: abd pain,nausea Time Seen by Provider: 05/03/23 16:51 Source: patient Mode of arrival: ambulatory Limitations: no limitations History of Present Illness: This patient presented from her home because of concerns about abdominal pain. She states that symptoms really began with some vague lower abdominal discomfort last evening and she did not sleep well through the night and woke this morning with persistent discomfort. She states she actually got out of bed and walked to the bathroom and felt uncomfortable with moving around the house. She eventually took her usual a.m. medications and made her way to the emergency department. She states that sitting in the waiting room, driving to the emergency department etc. made her very uncomfortable. She states she is feeling some improvement in her symptoms now that she is lying in a supine position. She states she has not had any appetite all day throughout the day. She denies any known fevers, exposure to infectious disease etc. She did have a loose stool today and is also had some urinary frequency. She does have knowledge of kidney stone pain as she has had previous kidney stones and states this is not similar to that. She had a prior hysterectomy for adenomyosis as well as a cholecystectomy. MD elicited complaint: abdominal pain Migration to: RLQ Exacerbating factors: movement Relieving factors: rest Associated Symptoms: Denies fever(s) Related Data: Patient : No Review of Systems 2 Const: Denies: fever(s) Eyes: Denies: change in vision ENMT: Denies: throat pain, odynophagia, nasal discharge or nasal congestion Card: Denies: chest pain or palpitations Resp: Denies: productive cough or non-productive cough GI: Reports: abdominal pain : Denies: flank pain or urinary frequency Musc: Denies: neck pain, back pain, extremity pain or extremity swelling Skin/Breast: Denies: rash Neuro: Denies: headache(s), numbness in extremities or weakness in extremities Psych: Denies: anxiety, depression or mood swings PFSH ED 2 PFSH: Medical History Insomnia Insomnia Problems related to lack of adequate sleep Diabetes 1.5, managed as type 2 Chronic ear infection Chronic pain of left knee Tachycardia Knee arthropathy Psychiatric care Surgical History History of arthroscopic knee surgery Left 2x History of cholecystectomy Hx of hysterectomy Family History Father Cancer Depression Mother Diabetes Cancer Depression Anxiety Social History Smoking and tobacco/nicotine status: never used tobacco/nicotine Second hand smoke exposure: No Alcohol intake: former Substance/Drug Use: never Adopted: No Caregiver/support person: No Lives independently: Yes Household members: none Housing: House Marital status: Single Number of children: 0 Highest education level completed: Master's Degree service: No Current occupational status: disabled Current gender identity: Female Physical Exam 2 Narrative: EXAM NARRATIVE: Patient is alert, makes good eye contact, appears to be comfortable at this time. Const: COMMON NORMALS: no acute distress, patient oriented x3 and healthy appearing GENERAL APPEARANCE: cooperative NUTRITIONAL APPEARANCE: o verweight HENMT: COMMON NORMALS: normocephalic, Normal nasal mucous membranes and turbinates present, moist oral mucous membranes and oropharynx normal HEAD & SCALP: normocephalic NOSE: Normal nasal mucous membranes and turbinates present Eye: COMMON NORMALS: Equal, round and reactive pupils present, EOMs intact bilaterally, conjunctivae normal and no scleral icterus CONJUNCTIVA: Yes conjunctivae normal PUPIL: Yes Equal, round and reactive pupils present Neck/C-Spine: COMMON NORMALS: full ROM, no lymphadenopathy and no JVD Chest: COMMONS NORMALS: normal inspection of the chest Resp: COMMON NORMALS: normal respiratory effort, No retractions, No use of accessory muscles and clear to auscultation bilaterally AUSCULTATION: clear to auscultation bilaterally Cardio: COMMON NORMALS: no JVD, regular rate, regular rhythm, No murmurs present (Cardio) and Peripheral pulses 2+ throughout RATE: regular rate R HYTHM: regular rhythm PERIPHERAL PULSES: Peripheral pulses 2+ throughout GI: COMMON NORMALS: Soft to palpation and no masses PALPATION: Yes Soft to palpation and Yes Tenderness to palpation present (GI) Details: RLQ OTHER: Patient is tender predominantly in the right lower quadrant and Sergio's point region. There is some increased symptoms with abdominal shake and psoas maneuvers. Back/Pelvis: COMMON NORMALS: thoracic and lumbar spine normal to inspection, no thoracic nor lumbar tenderness and thoraco-lumbar ROM normal Extremity: COMMON NORMALS: normal to inspection, full ROM, capillary refill normal and no calf tenderness Neuro: COMMON NORMALS: patient oriented x3, moves all extremities, no focal motor deficits and no sensory deficits noted Psych: COMMON NORMALS: mental status grossly normal Skin: COMMON NORMALS: no rashes or lesions noted, no wounds and turgor normal GENERAL SKIN EXAM: no rashes or lesions noted and turgor normal Course 2 Reevaluation(s): Reevaluation #1: Patient remains clinically stable. She has received IV fluids. Repeat examination reveals still has mild tenderness without rebound in the right lower quadrant and the right paramedian regions of her abdomen. No other new or focal findings. Discussed reassuring findings this evening with her. Will give her a trial of oral fluids and reevaluate. Time: 19:47 Reevaluation #2: Patient drank fluids without incident. No no other new or focal findings. At this point I have no definitive diagnosis other than abdominal pain and I have been very honest and forthcoming with the patient regarding the lack of any definitive findings but that close follow-up is important. She is very appreciative of our lack of diagnosis at this time and is very comfortable with going home and returning immediately for nonimprovement, worsening or any other concerns. Time: 20:20 Vital Signs: Vital signs: Vital Signs Temperature 98.1 F 05/03/23 15:03 Pulse Rate 61 05/03/23 19:16 Respiratory Rate 16 05/03/23 19:16 Blood Pressure 106/63 05/03/23 19:16 Pulse Oximetry 100 05/03/23 19:16 Oxygen Delivery Me thod Room Air 05/03/23 19:16 MDM - Abdominal Pain Medical Decision Making This patient presented to the emergency department this evening with abdominal pain. The abdominal pain had been predominantly right-sided and not quite the same that she is experienced in the past with renal colic. She not been exposed to any infectious disease that she was aware and has had no recent travel or recent antibiotic use etc. She had associated anorexia. Her abdominal examination was notable in that she had right paramedian and right lower quadrant tenderness Without rebound or guarding. Spine this finding and her history evaluation was initiated to rule out appendicitis, occult renal stone, other potential pathology. Subsequently her laboratories, CT scan imaging, urinalysis were all reassuring without any evidence to suggest acute appendicitis, renal stone, bowel obstruction or any other acute intra-abdominal pathology at this time. She had previous cholecystectomy and hysterectomy aching those potential etiologies off the table. The findings were shared with her in detail and the differential diagnosis was also discussed in detail. We cleared the fact that she may be very early in a disease process such as an recurrent early appendicitis that not declared itself but certainly at this time there was no even subtle signs per radiology of early appendicitis. She expressed understanding of the current diagnostic dilemma. At this point she is suitable to be discharged from the emergency department and reevaluated in 12 hours if not improved or sooner if necessary or do a follow-up appointment with herIf she is significant improved primary care doctor on Friday. She acknowledged our findings and their uncertainty and was appreciative of care. Lab Data I reviewed the patient's lab results. 05/03/23 17:45 05/03/23 17:45 Labs/Radiology: Radiology Impressions Abdomen/Pelvis CT 05/03/23 17:19 IMPRESSION: No acute findings. Laboratory Results WBC 9.03 10^3/uL (3.29-11.43) 05/03/23 17:45 RBC 5.07 10^6/uL (3.85-5.65) 05/03/23 17:45 Hgb 15.30 g/dL (11.27-16.99) 05/03/23 17:45 Hct 46.2 % (36-47) 05/03/23 17:45 MCV 91.1 fl (85-98) 05/03/23 17:45 MCH 30.2 pg (27-33) 05/03/23 17:45 MCHC 33.1 g/dL (30-55) 05/03/23 17:45 RDW 12.7 % (12.1-15.1) 05/03/23 17:45 Plt Count 275 10^3/cmm (157-399) 05/03/23 17:45 MPV 9.6 fL (7.4-10.4) 05/03/23 17:45 Neut % (Auto) 55.1 % 05/03/23 17:45 Lymph % (Auto) 33.4 % 05/03/23 17:45 [place] % (Auto) 9.2 % 05/03/23 17:45 Eos % (Auto) 1.3 % 05/03/23 17:45 Baso % (Auto) 0.7 % 05/03/23 17:45 Neut # (Auto) 4.97 10^3/uL (1.8-7.7) 05/03/23 17:45 Lymph # (Auto) 3.0 10^3/uL (0.8-4.8) 05/03/23 17:45 [place] # (Auto) 0.8 10^3/uL (0.2-0.9) 05/03/23 17:45 Eos # (Auto) 0.1 10^3/uL (0.0-0.8) 05/03/23 17:45 Baso # (Auto) 0.1 10^3/uL (0.0-0.1) 05/03/23 17:45 Nucleated RBC % (auto) 0 % 05/03/23 17:45 Nucleated RBCs # 0.0 /100WBC 05/03/23 17:45 Sodium 142 mmol/L (136-145) 05/03/23 17:45 Potassium 3.9 mmol/L (3.5-5.1) 05/03/23 17:45 Chloride 110 mmol/L (98-107) H 05/03/23 17:45 Carbon Dioxide 21 mmol/L (22-29) L 05/03/23 17:45 Anion Gap 14.9 (5-19) 05/03/23 17:45 BUN 12 mg/dL (6-20) 05/03/23 17:45 Creatinine 0.9 mg/dL (0.5-0.9) 05/03/23 17:45 GFR Calculation 69.7 mL/min (90-130) L 05/03/23 17:45 Glucose 117 mg/dL (65-115) H 05/03/23 17:45 Calculated Osmolality 295 mOsm/kg (285-295) 05/03/23 17:45 Calcium 9.3 mg/dL (8.5-10.5) 05/03/23 17:45 Total Bilirubin 0.4 mg/dL (0.15-1.2) 05/03/23 17:45 AST 22 U/L (0-32) 05/03/23 17:45 ALT 36 U/L (0-33) H 05/03/23 17:45 Alkaline Phosphatase 64 U/L (35-105) 05/03/23 17:45 Total Protein 6.9 g/dL (6.6-8.7) 05/03/23 17:45 Albumin 4.2 g/dL (3.5-5.2) 05/03/23 17:45 Globulin 2.7 g/dL (1.3-4.6) 05/03/23 17:45 Lipase 31 U/L (13-60) 05/03/23 17:45 HCG, Qual Negative (Negative) 05/03/23 12:12 Urine Color Yellow (Yellow) 05/03/23 12:12 Urine Appearance Clear (CLEAR) 05/03/23 12:12 Urine pH 6 (5-7) 05/03/23 12:12 Ur Specific [place] 1.020 (1.005-1.030) 05/03/23 12:12 Urine Protein Neg (Negative) 05/03/23 12:12 Urine Glucose (UA) Norm (Normal) 05/03/23 12:12 Urine Ketones Negative (Negative) 05/03/23 12:12 Urine Blood Neg (Negative) 05/03/23 12:12 Urine Nitrate Negative (Negative) 05/03/23 12:12 Urine Bilirubin Neg (Negative) 05/03/23 12:12 Urine Urobilinogen Neg mg/dL (Negative) 05/03/23 12:12 Ur Leukocyte Esterase Negative (Negative) 05/03/23 12:12 All radiology interpretation(s) finalized by discharge Discharge Plan Discharge Patient Disposition: Home Clinical Impression: Abdominal pain Qualifiers: Abdominal location: unspecified location Qualified Code(s): R10.9 - Unspecified abdominal pain Condition: Stable Prescriptions: No Action omeprazole 20 mg capsule,delayed release(DR/EC) 20 mg PO DAILY multivitamin Tablet 1 tab PO DAILY Zyrtec 10 mg capsule 10 mg PO DAILY propranolol 10 mg tablet 10 mg PO BID Corlanor 5 mg tablet 7.5 mg PO BID Rx Instructions: must administer with a meal/food diltiazem HCl 360 mg capsule,extended release 24 hr 360 mg PO DAILY albuterol sulfate 90 mcg/actuation HFA aerosol inhaler 2 puff inhalation Q6H PRN (Reason: shortness of breath or wheezing) Qty: 8.5 5RF alprazolam 0.25 mg tablet 0.25 mg PO .qhs 30 Days Qty: 30 3RF buspirone 30 mg tablet 30 mg PO BID 30 Days Qty: 60 3RF fluoxetine 40 mg capsule 80 mg PO DAILY 30 Days Qty: 60 3RF lurasidone 80 mg tablet 80 mg PO .q evening 30 Days Qty: 30 4RF Rx Instructions: Take 1 tablet by mouth each evening_must administer with food (at least 350 calories) prazosin 5 mg capsule 5 mg PO .HS 30 Days Qty: 30 4RF famotidine [Acid Strategy Lead (famotidine)] 10 mg tablet 10 mg PO DAILY cholecalciferol (vitamin D3) 125 mcg (5,000 unit) capsule 125 mcg PO DAILY lisinopril 5 mg tablet 5 mg PO DAILY rosuvastatin 10 mg tablet See Rx Instructions .ROUTE .COMPLEX Qty: 90 0RF Dose Instruction: TAKE ONE TABLET BY MOUTH ONCE DAILY Rx Instructions: TAKE ONE TABLET BY MOUTH ONCE DAILY Trulicity 1.5 mg/0.5 mL pen injector 1.5 mg SUBCUT Q7D 30 Days Qty: 2.5 0RF Rx Instructions: 1.5mg weekly for 1month Trulicity 3 mg/0.5 mL pen injector 3 mg SUBCUT Q7D 30 Days Qty: 2.5 2RF Discharge Orders: Discharge ED (Routine); Ordered 05/03/23 Ordered By: João Sandhu Referrals: Thuy Ryder FNP [Primary Care Provider] - Discharge Diet: Advance as tolerated and Clear Liquid Discharge Activity: Increase activity as tolerated Patient Instructions: Abdominal Pain (ED), Opioid Safety, Pain Management Activity Restrictions/Additional Instructions: As we discussed during your emergency department visit this evening we have no evidence at this time to suggest a serious condition such as appendicitis or other surgical condition. Your abdominal pain is unclear but may represent a very early condition that has not declared itself or may be a mild viral enteritis. Nonetheless we recommend close observation at home. You may drink fluids and advance to a liquid diet as tolerated but if it anytime your symptoms worsen, not improved in 12 hours or you develop any other concerning symptoms return to the emergency department immediately for reevaluation. Coding Level of Care Code ED Conduit Cleaner for Ramona Quintana
[2023-05-03] MEDS: iohexol 350 mg/mL 500 mL Btl (per mL) IV (17:51)
[2023-05-03 17:55] LABS: Basophils # 0.1 10^3/uL (0.0-0.1); Basophils % 0.7 %; Eosinophils # 0.1 10^3/uL (0.0-0.8); Eosinophils % 1.3 %; Hematocrit 46.2 % (36-47); Lymphocytes % 33.4 %; Mean Corpuscular HGB Conc 33.1 g/dL (30-55); Mean Corpuscular Hemoglobin 30.2 pg (27-33); Mean Corpuscular Volume 91.1 fl (85-98); Mean Platelet Volume 9.6 fL (7.4-10.4); Monocytes # 0.8 10^3/uL (0.2-0.9); Monocytes % 9.2 %; Neutrophils # 4.97 10^3/uL (1.8-7.7); Neutrophils % 55.1 %; Nucleated Red Blood Cells % 0 %; Platelet Count 275 10^3/cmm (157-399); Red Blood Count 5.07 10^6/uL (3.85-5.65); Red Cell Distribution Width 12.7 % (12.1-15.1); White Blood Count 9.03 10^3/uL (3.29-11.43)
[2023-05-03 18:12] LABS: Alanine Aminotransferase 36 U/L (0-33); Albumin Level 4.2 g/dL (3.5-5.2); Alkaline Phosphatase 64 U/L (35-105); Anion Gap 14.9 (5-19); Aspartate Amino Transferase 22 U/L (0-32); Blood Urea Nitrogen 12 mg/dL (6-20); Calcium 9.3 mg/dL (8.5-10.5); Carbon Dioxide 21 mmol/L (22-29); Chloride 110 mmol/L (98-107); Creatinine Clr Calc Pharmacy 99.9697; Globulin 2.7 g/dL (1.3-4.6); Glomerular Filtration Rate 69.7 mL/min (90-130); Glucose 117 mg/dL (65-115); Lipase 31 U/L (13-60); Osmolality Calculated 295 mOsm/kg (285-295); Potassium 3.9 mmol/L (3.5-5.1); Sodium 142 mmol/L (136-145); Total Bilirubin 0.4 mg/dL (0.15-1.2); Total Protein 6.9 g/dL (6.6-8.7)
[2023-05-03] MEDS: sodium chloride 0.9% 1,000 ML 999 ML IV (18:21)
[2023-05-03 18:37] LABS: Add Urine Microscopic? NO; Charge for UA Resulting for Rev
[2023-05-03 18:45] LABS: Bilirubin Urine Neg (Negative); Blood Urine Neg (Negative); Glucose Urine UA Norm (Normal); Ketones Urine Negative (Negative); Leukocyte Esterase Urine Negative (Negative); Nitrate Urine Negative (Negative); Protein Urine Neg (Negative); Urine Appearance Clear (CLEAR); Urine Color Yellow (Yellow); Urobilinogen Urine Neg (Negative); pH Urine 6 (5-7)
--- NOTE | 2023-05-03 19:15 | PC.NURSE ---
Assumed care of patient from Andrea Dow Rn @ [id number]. Rounding on patient. She is stable in room, abd pain is the same as check in per pt. Feels better to lay down. Fluids completed.
== END 2023-05-03 20:31 | disposition home or self-care (01) ==
PROVIDERS: Emergency Provider Emergency Medicine; PCP Nurse Practitioner
DX: R10.30 Lower abdominal pain, unspecified (principal); Z79.85 Long-term (current) use of injectable non-insulin antidiabetic drugs; E13.9 Other specified diabetes mellitus without complications
CPT/HCPCS: 74177; 80053; 81003; 81025; 83690; 85025; 99285; J7030; Q9967

== ENCOUNTER → 2023-05-19 10:15 | Outpatient (BNVA) | payer MEDICAID, SELFPAY | PROVIDERS: PCP Nurse Practitioner; Visit Provider Internal Medicine | DX: E07.9 Disorder of thyroid, unspecified (principal); R53.83 Other fatigue; R63.5 Abnormal weight gain; E11.9 Type 2 diabetes mellitus without complications; E78.2 Mixed hyperlipidemia | CPT/HCPCS: 80053; 80061; 82043; 83036 ==

== ENCOUNTER → 2023-05-23 11:20 | Outpatient (BNVA) | payer MEDICAID, SELFPAY | PROVIDERS: PCP Nurse Practitioner; Visit Provider Internal Medicine | DX: E11.9 Type 2 diabetes mellitus without complications (principal); E07.9 Disorder of thyroid, unspecified; R53.83 Other fatigue; R63.5 Abnormal weight gain; E78.2 Mixed hyperlipidemia; Z68.42 Body mass index [BMI] 45.0-49.9, adult; Z79.85 Long-term (current) use of injectable non-insulin antidiabetic drugs | CPT/HCPCS: 99214 ==

== ENCOUNTER → 2023-08-01 12:34 | Outpatient (BNVA) | payer MEDICAID, SELFPAY ==
[2023-05-29 14:49] VITALS: BP 106/63; BMI 40.3
== END ==
PROVIDERS: PCP Nurse Practitioner; Visit Provider Specialist
DX: G43.711 Chronic migraine without aura, intractable, with status migrainosus (principal)
CPT/HCPCS: 99204

== ENCOUNTER → 2023-08-13 11:02 | Outpatient (BNVA) | payer MEDICAID, SELFPAY ==
[2023-05-29 14:49] VITALS: BP 106/63; BMI 40.3
== END ==
PROVIDERS: PCP Nurse Practitioner; Visit Provider Internal Medicine
DX: E11.9 Type 2 diabetes mellitus without complications (principal)
CPT/HCPCS: 80053; 80061; 82043; 83036

== ENCOUNTER → 2023-08-21 11:21 | Outpatient (BNVA) | payer MEDICAID, SELFPAY ==
[2023-08-21 12:02] VITALS: BP 106/63; BMI 40.3
== END ==
PROVIDERS: PCP Nurse Practitioner; Visit Provider Internal Medicine
DX: E11.9 Type 2 diabetes mellitus without complications (principal); E07.9 Disorder of thyroid, unspecified; E78.2 Mixed hyperlipidemia
CPT/HCPCS: 99214

== ENCOUNTER → 2023-08-28 13:44 | Outpatient (BNVA) | payer MEDICAID, SELFPAY ==
[2023-08-21 12:02] VITALS: BP 106/63; BMI 40.3
== END ==
PROVIDERS: PCP Nurse Practitioner; Visit Provider Internal Medicine Pulmonary Disease
DX: G47.33 Obstructive sleep apnea (adult) (pediatric) (principal); Z68.41 Body mass index [BMI] 40.0-44.9, adult; J45.990 Exercise induced bronchospasm
CPT/HCPCS: 99214

== ENCOUNTER 2023-09-15 12:36 | Outpatient (CLI) | payer MEDICAID, SELFPAY ==
[2023-05-29 14:49] VITALS: BP 106/63; BMI 40.3
[2023-08-21 12:02] VITALS: BP 106/63; BMI 40.3
--- NOTE | 2023-09-15 13:00 | MR_ITS ---
WS: [id number] MRI BRAIN WITHOUT CONTRAST HISTORY: G43.711 - Chronic migraine without aura, intractable, wit... COMPARISON: None available. TECHNIQUE: Diffusion imaging, multiplanar T1, T2 and FLAIR imaging obtained. No evidence for acute infarct or hemorrhage. [place]-white matter differentiation is normal. No remote or acute infarcts are volume loss. Ventricles and extra-axial spaces are normal. No inferior displacement of cerebellar tonsils. The sella turcica and pituitary gland are unremarkabl e. Dural venous sinuses and ak chin of [place] demonstrate no abnormality on this unenhanced studies. Paranasal sinuses: Clear. Mastoid air cells: Normal. Calvarium and scalp: Intact. IMPRESSION: 1. Unremarkable noncontrast MRI brain. 2. No prior infarct or signal abnormality.
== END 2023-09-15 12:37 | disposition home or self-care (01) ==
LOC: RAD 12:36
PROVIDERS: PCP Nurse Practitioner; Visit Provider Specialist
DX: G43.711 Chronic migraine without aura, intractable, with status migrainosus (principal)
CPT/HCPCS: 70551

== ENCOUNTER → 2023-11-05 09:21 | Outpatient (BNVA) | payer MEDICAID, SELFPAY ==
[2023-08-21 12:02] VITALS: BP 106/63; BMI 40.3
== END ==
PROVIDERS: PCP Nurse Practitioner; Visit Provider Internal Medicine
DX: E11.9 Type 2 diabetes mellitus without complications (principal); E07.9 Disorder of thyroid, unspecified; E78.2 Mixed hyperlipidemia
CPT/HCPCS: 80053; 80061; 82043; 83036

== ENCOUNTER → 2023-11-12 11:13 | Outpatient (BNVA) | payer MEDICAID, SELFPAY ==
[2023-11-12 10:42] VITALS: BP 105/77; BMI 36.4
== END ==
PROVIDERS: PCP Nurse Practitioner; Visit Provider Internal Medicine
DX: E11.9 Type 2 diabetes mellitus without complications (principal); E78.2 Mixed hyperlipidemia; Z79.84 Long term (current) use of oral hypoglycemic drugs
CPT/HCPCS: 99214

== ENCOUNTER → 2024-05-05 14:28 | Outpatient (BNVA) | payer MEDICAID, SELFPAY ==
[2023-11-12 10:42] VITALS: BP 105/77; BMI 36.4
== END ==
PROVIDERS: PCP Nurse Practitioner; Visit Provider Specialist
DX: G43.711 Chronic migraine without aura, intractable, with status migrainosus; K76.0 Fatty (change of) liver, not elsewhere classified; R00.0 Tachycardia, unspecified
CPT/HCPCS: 99214

== ENCOUNTER → 2024-07-30 12:04 | Outpatient (BNVA) | payer MEDICAID, SELFPAY ==
[2023-11-12 10:42] VITALS: BP 105/77; BMI 36.4
== END ==
PROVIDERS: PCP Nurse Practitioner; Visit Provider Specialist
DX: G43.711 Chronic migraine without aura, intractable, with status migrainosus (principal)
CPT/HCPCS: 64615; J0585

== ENCOUNTER → 2024-11-24 14:55 | Outpatient (BNVA) | payer MEDICAID, SELFPAY ==
[2023-11-12 10:42] VITALS: BP 105/77; BMI 36.4
== END ==
PROVIDERS: PCP Nurse Practitioner; Visit Provider Specialist
DX: G72.9 Myopathy, unspecified (principal); G43.711 Chronic migraine without aura, intractable, with status migrainosus
CPT/HCPCS: 36415; 82550; 83516; 83519; 84439; 85651; 86160; 86162; 86235; 86255; 86376; 99214